=== PATIENT | female | born 1980 | race Hispanic/Latino ===

== ENCOUNTER 2021-12-20 19:39 | Emergency (ER) | payer SELFPAY, OTHER | END 2021-12-20 21:52 | disposition home or self-care (01) | LOC: CSHERS 19:39 | DX: S09.90XA Unspecified injury of head, initial encounter (principal); S20.211A Contusion of right front wall of thorax, initial encounter; V89.2XXA Person injured in unspecified motor-vehicle accident, traffic, initial encounter | CPT/HCPCS: 70450; 71045 ==